=== PATIENT | female | born 1970 | race African-American/Black ===

== ENCOUNTER 2021-01-16 07:29 | Outpatient (CLI) | payer OTHER, SELFPAY ==
[2021-01-16 08:03] LABS: Basophils Percent Auto 0.3 % (0.2-1.2); Eosinophils Absolute Auto 0.1 K/mm3 (0-0.3); Eosinophils Percent Auto 2.9 % (0-4.4); Hematocrit 29.6 % (37.0-47.0); Hemoglobin 9.9 g/dL (12.0-15.0); Immature Granulocyte Absolute 0.01 K/mm3 (0.00-0.031); Immature Granulocyte Percent A 0.3 % (0-0.5); Lymphocytes Absolute Auto 1.11 K/mm3 (0.9-3.2); Lymphocytes Percent Auto 35.7 % (18.3-44.2); Mean Corpuscular HGB Conc 33.4 g/dl (32-36); Mean Corpuscular Hemoglobin 30.7 pg (26-34); Mean Corpuscular Volume 91.9 fl (80-100); Mean Platelet Volume 9.5 fl (7.4-10.4); Monocytes Absolute Auto 0.4 K/mm3 (0.1-0.6); Monocytes Percent Auto 12.9 % (2.6-8.5); Neutrophils Absolute Auto 1.5 K/mm3 (1.3-6.7); Neutrophils Percent Auto 47.9 % (45.5-73.1); Platelet Count Result 328 k/mm3 (150-375); Red Blood Count 3.22 M/mm3 (4.2-5.4); Red Cell Distribution Width 13.4 % (11.5-14.5); White Blood Count 3.1 K/mm3 (4.5-10.0)
[2021-01-16 08:14] LABS: Iron 90 ug/dL (37-170)
[2021-01-16 08:18] LABS: CRP < 0.5 mg/dL (<1.0); Lactate Dehydrogenase 464 U/L (313-618)
[2021-01-16 08:24] LABS: Percent Iron Saturation 29 % (20-50)
[2021-01-16 08:50] LABS: Platelet Estimate Adequate (Adequate)
[2021-01-16 08:51] LABS: Anisocytosis 1+ (NORMAL); Hypochromasia 1+ (NORMAL); Ovalocytes 2+ (NORMAL)
[2021-01-16 08:54] LABS: Erythrocyte Sedimentation Rate 90 mm/hr (0-20)
[2021-01-16 09:21] LABS: Folic Acid 13.4 ng/mL (2.76->20)
== END 2021-01-16 07:30 | disposition home or self-care (01) ==
PROVIDERS: PCP Family Medicine; Visit Provider Internal Medicine Hematology & Oncology
DX: R59.1 Generalized enlarged lymph nodes (principal)
CPT/HCPCS: 36415; 82607; 82728; 82746; 83540; 83550; 83615; 85025; 85652; 86140; 88184

== ENCOUNTER → 2021-01-28 13:04 | Outpatient (CLI) | payer OTHER, SELFPAY ==
--- NOTE | ~2021-01-28 | CT_ITS ---
EXAMINATION: CT soft tissue neck w con EXAM DATE: 01/28/2021 13:40 INDICATION: Head and neck lymphadenopathy. TECHNIQUE: Spiral CT of the neck was performed following intravenous injection of 75 mL Omnipaque 350 . Axial, coronal and sagittal images were reviewed. The dose-length product (DLP) for this examinat ion was 441.84 mGy-cm. The exposure was tailored according to patient size (auto mA exposure control ), and iterative reconstruction (ASIR) was used as additional dose reduction technique. There is no prior study for comparison. FINDINGS: There are pathologically enlarged supraclavicular, submandibular, bilateral internal jugula r chain lymph nodes. Largest left supraclavicular lymph node measures 2.6 x 1.6 cm, and on the right measures also 2.6 x 1.6 cm. There is a right internal jugular chain lymph node at the mandibular angl e measuring 2.3 x 1.0 cm. The thyroid gland is unremarkable. Several intraparotid lymph nodes. The superior mediastinum is unremarkable. The airway is unremarkable. Parapharyngeal and pre-glot tic fat planes are preserved. The opacified vasculature is patent. The orbits are unremarkable. Visualized sinuses and mastoid air cells are well aerated. Lung apices clear. There is cervical s pondylosis. IMPRESSION: Supraclavicular and cervical lymphadenopathy. Lymphoma would be a top consideration. Hist ologic correlation. Reviewed, dictated and finalized at location A. IMPRESSION: Supraclavicular and cervical lymphadenopathy. Lymphoma would be a t op consideration. Histologic correlation.
[2021-01-28 13:23] LABS: Estimated Glomerular Filt Rate > 60
== END ==
PROVIDERS: Visit Provider Internal Medicine Hematology & Oncology
DX: R59.0 Localized enlarged lymph nodes (principal); M47.812 Spondylosis without myelopathy or radiculopathy, cervical region
CPT/HCPCS: 70491; Q9967

== ENCOUNTER → 2021-01-28 13:09 | Outpatient (CLI) | payer OTHER, SELFPAY ==
--- NOTE | ~2021-01-28 | MM_ITS ---
EXAMINATION: MM screening grayson BI w paddy HISTORY: Screening TECHNIQUE: Craniocaudal and mediolateral oblique 3-D tomosynthesis images were obtained and synthetic 2-D images were generated. CAD analysis was submitted and interpreted. COMPARISON: No prior mammogram is available for comparison at this institution. BREAST PARENCHYMAL COMPOSITION: The breasts are heterogeneously dense, which may obscure small masses . FINDINGS: There are enlarged dense bilateral axillary lymph nodes. There is no evidence of suspicious mass, calcification, or architectural distortion to suggest malignancy in either breast. There has b een no suspicious interval change. IMPRESSION: 1. Enlarged dense bilateral axillary lymph nodes. 2. Recommend bilateral axillary ultrasound. BI-RADS Category 0: Incomplete: Needs additional imaging evaluation. Reviewed, dictated and finalized at location A.
== END ==
PROVIDERS: PCP Family Medicine; Visit Provider Family Medicine
DX: Z12.31 Encounter for screening mammogram for malignant neoplasm of breast (principal); R92.8 Other abnormal and inconclusive findings on diagnostic imaging of breast
CPT/HCPCS: 77063; 77067

== ENCOUNTER → 2021-03-04 08:42 | Outpatient (CLI) | payer OTHER, SELFPAY ==
--- NOTE | ~2021-03-04 | US_ITS ---
US axilla BI 03/04/2021 09:11 Indication: Enlarged bilateral axillary lymph nodes present on prior mammogram. Procedure: High-resolution axillary ultrasound bilaterally. Comparison: Mammogram dated 01/29/2020 Findings: There are enlarged bilateral axillary lymph nodes with retention of normal fatty hilum. Lar gest right axillary lymph node measures 4.3 cm greatest dimension. Largest left axillary lymph node m easures 3.5 cm greatest dimension. There are a few lymph nodes in the left axilla with effacement of the fatty hilum, largest measuring 2.5 cm, suspicious for pathologic nodes. Impression: 1: Enlarged bilateral axillary lymph nodes. In the left axilla there are lymph nodes with effacement of the fatty hilum, suspicious for pathologic nodes. Largest measures 2.5 cm. Recommend ultrasound-gu ided biopsy. BI-RADS CATEGORY 4-SUSPICIOUS ABNORMALITY Reviewed, dictated and finalized at location A. SLUDGE MIXER Impression: 1: Enlarged bilateral axillary lymph nodes. In the left axilla there are lymph nodes with effacement of the fatty hilum, suspicious for pathologic nodes. Larg est measures 2.5 cm. Recommend ultrasound-guided biopsy. BI-RADS CATEGORY 4-SUSPICIOUS ABNORMALITY
== END ==
PROVIDERS: PCP Family Medicine; Visit Provider Family Medicine
DX: R92.8 Other abnormal and inconclusive findings on diagnostic imaging of breast (principal)
CPT/HCPCS: 76882

== ENCOUNTER 2021-03-31 09:36 | Outpatient (CLI) | payer OTHER, SELFPAY ==
--- NOTE | ~2021-03-31 | US_ITS ---
EXAMINATION: US biopsy lymph node DATE: 03/31/2021 10:55 INDICATION: Left axillary lymphadenopathy. TECHNIQUE: The procedure including the risks, benefits, and alternatives was discussed with the patie nt. Risks discussed included bleeding and infection. The patient understood the risks and agreed to p roceed. The skin overlying the left axilla was prepped and draped in usual sterile fashion. Anesthet ic was administered with 1% lidocaine subcutaneously. An 18 gauge core biopsy needle was then used t o obtain 8 core biopsy specimens under continuous sonographic guidance. The entry site was cleaned an d dressed. There were no immediate complications. FINDINGS: Ultrasound images demonstrate the needle in a 3.2 x 2.1 cm left axillary lymph node. IMPRESSION: 1. Ultrasound-guided core needle biopsy of an enlarged left axillary lymph node. Reviewed, dictated and finalized at location A. ENGRAVER IMPRESSION: 1. Ultrasound-guided core needle biopsy of an enlarged left axillary lymph node .
== END 2021-03-31 09:37 | disposition home or self-care (01) ==
LOC: ANHIMG 09:41
PROVIDERS: PCP Family Medicine; Visit Provider Family Medicine
DX: N63.32 Unspecified lump in axillary tail of the left breast (principal)
CPT/HCPCS: 38505; 76942; 88184; 88305; 88341; 88342